=== PATIENT | male | born 1955 | race Caucasian/White ===

== ENCOUNTER 2017-07-30 11:03 | Emergency (ER) | payer MEDICAID ==
[~2017-07-30] VITALS: Ht 190.5 cm; Wt 86.0 kg
[~2017-07-30 11:03] MED LIST: PRIL20CA PO; SPIRCAP INH
[2017-07-30 11:09] VITALS: BP 156/98; PULSE 96; RESP 17; TEMP 97.7; O2SAT 96
[2017-07-30] MEDS ORDERED: NON-500T13 PO (11:30)
[2017-07-30] MEDS ORDERED: OMEP20TA PO (11:30)
[2017-07-30] MEDS ORDERED: TETANUS/DIPHTHERIA TOXOID ADULT 0.5 ML VIAL IM ONE (12:00)
[2017-07-30] MEDS ORDERED: IOHEXOL 350 MG/ML 10 ML VIAL (for RAD DIAG) IVCONTRAST ONE (12:45)
--- NOTE | 2017-07-30 13:02 | PD ---
HPI Chief Complaint: Laceration/Skin Injury Time Seen by Provider: 11:42 Travel History International Travel<30 days: No Contact w/Intl Traveler<30days: No Traveled to known affect area: No History of Present Illness HPI 62-year-old male presents emergency department for evaluation of a laceration to left upper extremity. Patient cut his left forearm with a primer boxer approximately 2 hours prior to arrival. Patient reports he applied a pressure dressing to the area which stopped the bleeding. He reports the area then began to rebleed prompting his visit to the emergency department. He denies numbness/tingling/weakness in the extremity. He has a 2 cm laceration in the proximal anterior aspect of the forearm with a large underlying hematoma and swelling. The wound is actively bleeding. Tetanus status unknown. PFSH Past Medical History Asthma: Yes Blood Disorders: No Cancer: No COPD: Yes Diminished Hearing: No Endocrine: No GERD: Yes Genitourinary: No Immune Disorder: No Musculoskeletal: No Neurologic: No Psychiatric: No Reproductive: No Respiratory: Yes Past Surgical History Appendectomy: Yes Social History Alcohol Use: Yes (8 beers per day) Tobacco Use: Yes (2PPD) Substance Use: No Allergies-Medications (Allergen,Severity, Reaction): Coded Allergies: No Known Allergies (Verified , 07/30/17) Reported Meds & Prescriptions Reported Meds & Active Scripts Active Reported Non-Aspirin Pain Relief ES (Acetaminophen) 500 Mg Tab 500 Mg PO Q4-6H PRN Omeprazole 20 Mg Tab 20 Mg PO DAILY Review of Systems Except as stated in HPI: all other systems reviewed are Neg General / Constitutional: No: Fever Eyes: No: Visual changes HENT: No: Headaches Cardiovascular: No: Chest Pain or Discomfort Respiratory: No: Shortness of Breath Gastrointestinal: No: Abdominal Pain Genitourinary: No: Dysuria Physical Exam Narrative GENERAL: Well-nourished, well-developed patient. SKIN: Focused skin assessment warm/dry. 2 cm laceration left proximal anterior forearm. The area has a large underlying hematoma with swelling. No neurovascular injury identified HEAD: Normocephalic. EYES: No scleral icterus. No injection or drainage. NECK: Supple, trachea midline. No JVD or lymphadenopathy. CARDIOVASCULAR: Regular rate and rhythm without murmurs, gallops, or rubs. RESPIRATORY: Breath sounds equal bilaterally. No accessory muscle use. GASTROINTESTINAL: Abdomen soft, non-tender, nondistended. MUSCULOSKELETAL: No cyanosis, or edema. LUE: 2 cm laceration left proximal anterior forearm. The area has a large underlying hematoma with swelling. No vascular injury identified on local inspection. 2+ brachial, radial, ulna pulse. The extremity is warm. Brisk cap refill. Patient has full range of motion and normal sensation in the hand and wrist and digits. BACK: Nontender without obvious deformity. No CVA tenderness. Data Data Last Documented VS Vital Signs Date Time Temp Pulse Resp B/P (MAP) Pulse Ox O2 Delivery O2 Flow Rate FiO2 07/30/17 11:09 97.7 96 17 156/98 (117) 96 Orders Orders Cta Up Extrem W Iv Cont W 3d (07/30/17 ) Tetanus/Diphtheria Tox Adult (Tetanus/Di (07/30/17 12:00) Iohexol 350 Inj (Omnipaque 350 Inj) (07/30/17 12:45) MDM Medical Decision Making Medical Screen Exam Complete: Yes Emergency Medical Condition: Yes Differential Diagnosis Laceration, vascular injury, hematoma, Narrative Course 62-year-old male presents emergency department for evaluation of laceration to left forearm. The wound was caused by a primer boxer. Patient is unsure of how deep the primer boxer penetrated the arm. On exam the patient has a 2 cm laceration with a large underlying hematoma and swelling. Given the location of the laceration and the amount of hematoma development underneath CTA of the extremity will be obtained to rule out vascular injury. Patient does have 2+ brachial, radial and ulnar pulse. The extremity is warm, color is homogenous, brisk cap refill. Patient refusing to wait for CTA results. He is requesting to leave to get something to eat and have a cigarette. Multiple attempts by nursing staff and myself to accommodate the patient until diagnostic studies were completed. Patient is of sound state of mind and determined he one to leave and would return later. Risks were discussed with patient. AMA: The risks of leaving against medical advice without further evaluation treatment were discussed with the patient. These risks include cardiac dysfunction, cardiac dysrhythmia, possible heart attack, possible stroke or . The patient indicated understanding of these risks and appeared to have the capacity to make this decision. Disposition: 07 AGAINST MEDICAL ADVICE Lolis Tabor Jul 30, 2017 13:02
--- NOTE | 2017-07-30 14:12 | RADRPT ---
EXAM DATE/TIME: 07/30/2017 12:31 [facility] COMPARISON: No previous studies available for comparison. INDICATIONS : Cut arm with a box feeder. mid forearm. IV CONTRAST: 96 cc Omnipaque 350 (iohexol) IV RADIATION DOSE: 6.13 CTDIvol (mGy) MEDICAL HISTORY : None SURGICAL HISTORY : None. ENCOUNTER: Initial ACUITY: 1 day PAIN SCALE: 4/10 LOCATION: Left mid forarm. TECHNIQUE: Volumetric scanning was performed using a multirow detector CT scanner. Using automated exposure cont rol and adjustment of the mA and/or kV according to patient size, radiation dose was kept as low as r easonably achievable to obtain optimal diagnostic quality images. The data was post processed with a variety of visualization algorithms including full-volume maximum intensity projection, multiplanar sliding thin-slab reformation, curved-planar reformation, and surface-rendering techniques. Using au tomated exposure control and adjustment of the mA and/or kV according to patient size, radiation dose was kept as low as reasonably achievable to obtain optimal diagnostic quality images. DICOM format image data is available electronically for review and comparison. FINDINGS: There is good visualization of the brachial artery, at the elbow. There is good visualization the ul rodrigue artery, interosseous artery and radial artery at the wrist. I don't see extravasation or pseudoaneurysm. Small hematoma is noted. Findings as been discussed with Sharona GARCIA on today's date. CONCLUSION: Negative for significant vascular injury or extravasation. Eliazar Soria MD FACR on July 30, 2017 at 14:06 Board Certified Radiologist. This report was verified electronically.
== END 2017-07-30 13:40 | disposition left against medical advice (07) ==
LOC: PHEFT 11:03
DX: S51.812A Laceration without foreign body of left forearm, initial encounter (principal); F17.200 Nicotine dependence, unspecified, uncomplicated; Z23 Encounter for immunization; Z87.09 Personal history of other diseases of the respiratory system; Z87.19 Personal history of other diseases of the digestive system; Z53.29 Procedure and treatment not carried out because of patient's decision for other reasons; W27.8XXA Contact with other nonpowered hand tool, initial encounter
CPT/HCPCS: 73206; 90471; 90714; 99285; Q9967

== ENCOUNTER 2017-07-30 14:56 | Emergency (ER) | payer MEDICAID ==
[~2017-07-30 14:56] MED LIST changes: +NON-500T13 PO; +OMEP20TA PO
[2017-07-30 14:59] VITALS: BP 142/70; PULSE 103; RESP 16; TEMP 97.8; O2SAT 95
--- NOTE | 2017-07-30 16:15 | PD ---
HPI Chief Complaint: Laceration/Skin Injury Time Seen by Provider: 16:12 Travel History International Travel<30 days: No Contact w/Intl Traveler<30days: No Traveled to known affect area: No History of Present Illness HPI 62-year-old male presents emergency department for evaluation of a laceration to left upper extremity. Patient cut his left forearm with a box nailer approximately 2 hours prior to arrival. Patient reports he applied a pressure dressing to the area which stopped the bleeding. He reports the area then began to rebleed prompting his visit to the emergency department. He denies numbness/tingling/weakness in the extremity. He has a 2 cm laceration in the proximal anterior aspect of the forearm with a large underlying hematoma and swelling. The wound is actively bleeding. Tetanus status unknown. Patient was seen earlier today around 12 PM CTA of the upper extremity was ordered to rule out a vascular injury at that time patient decided to leave AMA to get something to eat and has now returned for repair. CTA of left upper extremity reveal an aneurysm or vascular injury. PFSH Past Medical History Asthma: Yes Blood Disorders: No Cancer: No COPD: Yes Diminished Hearing: No Endocrine: No Gastrointestinal Disorders: Yes GERD: Yes Genitourinary: No Immune Disorder: No Musculoskeletal: No Neurologic: No Psychiatric: No Reproductive: No Respiratory: Yes Tetanus Vaccination: < 5 Years Influenza Vaccination: No Past Surgical History Appendectomy: Yes Other Surgery: No Social History Alcohol Use: Yes (8 beers per day) Tobacco Use: Yes (2PPD) Substance Use: No Allergies-Medications (Allergen,Severity, Reaction): Coded Allergies: No Known Allergies (Verified , 07/30/17) Reported Meds & Prescriptions Reported Meds & Active Scripts Active Reported Non-Aspirin Pain Relief ES (Acetaminophen) 500 Mg Tab 500 Mg PO Q4-6H PRN Omeprazole 20 Mg Tab 20 Mg PO DAILY Review of Systems Except as stated in HPI: all other systems reviewed are Neg Physical Exam Narrative GENERAL: Well-nourished, well-developed patient. SKIN: Focused skin assessment warm/dry. 2 cm laceration left proximal anterior forearm. The bleeding is well-controlled. No foreign body or underlying vascular injury visualized. HEAD: Normocephalic. EYES: No scleral icterus. No injection or drainage. NECK: Supple, trachea midline. No JVD or lymphadenopathy. CARDIOVASCULAR: Regular rate and rhythm without murmurs, gallops, or rubs. RESPIRATORY: Breath sounds equal bilaterally. No accessory muscle use. GASTROINTESTINAL: Abdomen soft, non-tender, nondistended. MUSCULOSKELETAL: No cyanosis, or edema. Left upper extremity 2 cm laceration left proximal anterior forearm. The bleeding is well-controlled. No foreign body or underlying vascular injury visualized. 2+ brachial, radial, ulnar pulse. Brisk cap refill. Normal sensation. Data Data Last Documented VS Vital Signs Date Time Temp Pulse Resp B/P (MAP) Pulse Ox O2 Delivery O2 Flow Rate FiO2 07/30/17 16:04 16 07/30/17 14:59 97.8 103 142/70 (94) 95 MDM Medical Decision Making Medical Screen Exam Complete: Yes Emergency Medical Condition: Yes Differential Diagnosis Laceration, rule out vascular injury Narrative Course 62-year-old male presents emergency department for evaluation of laceration to left upper extremity caused by a box nailer today. Patient was seen earlier in the emergency department around noon and at that time his physical exam revealed a to send meter laceration with a substantial hematoma developing. CTA of the upper extremity was ordered to rule out vascular injury. CTA was negative for vascular injury. The wound is not currently bleeding. It was explored and no vascular or tendon injury identified. No foreign body identified. Laceration repair performed. Patient tolerated procedure well. The extremity is neurovascularly intact. Tetanus status was updated a prior visit. Procedures Procedure Narrative LACERATION LOCATION: Left upper extremity LENGTH: 2 cm NUMBER OF STITCHES/KATINA: 4 REPAIR: The area of the laceration was prepped with Betadine and sterilely draped. The laceration was infiltrated with 1% lidocaine. The wound was copiously irrigated and explored without evidence of foreign body, tendon injury or neurovascular injury. The wound was closed using 4-0 Ethilon. This was a single layer repair. A sterile dressing was applied. The patient was advised to keep the dressing clean and dry. Patient tolerated the procedure well. Diagnosis Primary Impression: Laceration of upper extremity Qualified Codes: S41.112A - Laceration without foreign body of left upper arm , initial encounter Referrals: Primary Care Physician Additional Instructions: The sutures need to be removed in 10 days. Ice and elevate the extremity. Return to the emergency department if you have increasing pain, swelling, altered sensation or change in color of the extremity. Disposition: 01 DISCHARGE HOME Condition: Stable Leedy,Lolis N RAPID TRANSIT OPERATOR Jul 30, 2017 16:15
== END 2017-07-30 17:15 | disposition home or self-care (01) ==
LOC: PHEFT 14:56
DX: S51.812A Laceration without foreign body of left forearm, initial encounter (principal); F17.200 Nicotine dependence, unspecified, uncomplicated; Z87.09 Personal history of other diseases of the respiratory system; Z87.19 Personal history of other diseases of the digestive system; W27.8XXA Contact with other nonpowered hand tool, initial encounter
CPT/HCPCS: 12001

== ENCOUNTER 2017-08-05 11:20 | Emergency (ER) | payer MEDICAID ==
[~2017-08-05] VITALS: Ht 190.5 cm; Wt 84.8 kg
[~2017-08-05 11:20] MED LIST changes: -PRIL20CA PO; -SPIRCAP INH
[2017-08-05 11:23] VITALS: BP 145/90; PULSE 90; RESP 15; TEMP 97.6; O2SAT 93
[2017-08-05] MEDS ORDERED: BACT800T5 PO (11:44)
[2017-08-05] MEDS ORDERED: SULFAMETHOXAZOLE-TRIMETHOPRIM DS 800-160 MG TAB PO ONE (11:45)
--- NOTE | 2017-08-05 11:58 | PD ---
HPI Chief Complaint: Wound/Suture/Staple Re-Check Time Seen by Provider: 11:37 Travel History International Travel<30 days: No Contact w/Intl Traveler<30days: No Traveled to known affect area: No History of Present Illness HPI 62-year-old male that presents to the ED for evaluation of wounds to his left arm. Patient had a laceration that was repaired about 2 days ago. There was concern for arterial involvement as patient did have an area of swelling. Patient was given a CTA which was negative for this and had suturing done. Patient reports that he was told that if in 2 days he doesn't get better to come back to get rechecked. Per patient he went to his [employer] ticket checker today to get checked for skin cancers and the [employer] checker told him that the wound appears to be infected and the recommend antibiotics. He came here for reevaluation as per patient the temperature is started patient on ciprofloxacin and he is concerned that his mother had very serious reaction to it and does not want to start on that. He states that he has minimal discomfort. Per patient the swelling has not gotten worse or better. Per patient he does have some area of purulence and erythema on the wound that was not previously seen. He was not given any antibiotics. He denies any other issues. Able to move all fingers. No pain. PFSH Past Medical History Asthma: Yes Blood Disorders: No Cancer: No COPD: Yes Diminished Hearing: No Endocrine: No Gastrointestinal Disorders: Yes GERD: Yes Genitourinary: No Immune Disorder: No Musculoskeletal: No Neurologic: No Psychiatric: No Reproductive: No Respiratory: Yes Past Surgical History Appendectomy: Yes Other Surgery: No Social History Alcohol Use: Yes (8 beers per day) Tobacco Use: Yes (2PPD) Substance Use: No Allergies-Medications (Allergen,Severity, Reaction): Coded Allergies: No Known Allergies (Verified , 08/05/17) Reported Meds & Prescriptions Reported Meds & Active Scripts Active Bactrim DS (Sulfamethoxazole-Trimethoprim) 800-160 Mg Tab 1 Tab PO BID 10 Days Reported Non-Aspirin Pain Relief ES (Acetaminophen) 500 Mg Tab 500 Mg PO Q4-6H PRN Omeprazole 20 Mg Tab 20 Mg PO DAILY Review of Systems Except as stated in HPI: all other systems reviewed are Neg Physical Exam Narrative GENERAL: SKIN: Warm and dry. HEAD: Atraumatic. Normocephalic. EYES: Pupils equal and round. No scleral icterus. No injection or drainage. ENT: No nasal bleeding or discharge. Mucous membranes pink and moist. Tongue is midline. No uvula deviation. NECK: Trachea midline. No JVD. CARDIOVASCULAR: Regular rate and rhythm. No murmurs, S3, S4. RESPIRATORY: No accessory muscle use. Clear to auscultation. Breath sounds equal bilaterally. GASTROINTESTINAL: Abdomen soft, non-tender, nondistended. Hepatic and splenic margins not palpable. MUSCULOSKELETAL: Extremities without clubbing, cyanosis, or edema. No obvious deformities. Full range of motion of the upper and lower extremities bilaterally. Patient has a superficial healing laceration on the left dorsal forearm. About 2 cm. Patient has 4 sutures noted. Patient does have purulence coming from the wound. And erythema on the wound itself. Patient does have an area of swelling just proximal to the wound. This appears to be chronic likely secondary to laceration. No sign of active bleeding. No sign of abscess. NEUROLOGICAL: Awake and alert. No obvious cranial nerve deficits. Motor grossly within normal limits. Five out of 5 muscle strength in the arms and legs. Normal speech. PSYCHIATRIC: Appropriate mood and affect; insight and judgment normal. Data Data Last Documented VS Vital Signs Date Time Temp Pulse Resp B/P (MAP) Pulse Ox O2 Delivery O2 Flow Rate FiO2 08/05/17 11:23 97.6 90 15 145/90 (108) 93 Orders Orders Sulfamet-Trimeth Ds 800-160 Mg (Bactrim (08/05/17 11:45) Wound Care (08/05/17 11:44) Wound Culture And Gram Stain (08/05/17 11:44) MDM Medical Decision Making Medical Screen Exam Complete: Yes Emergency Medical Condition: Yes Medical Record Reviewed: Yes Differential Diagnosis Wound check versus infected wound versus cellulitis Narrative Course 62-year-old male that presents to the ED for evaluation of infected wound. Patient was properly examined and was found to have signs and symptoms consistent with an infected wound. Wound culture was taken. 2 of The sutures were removed by me using suture removal kit to let the wound heal by secondary intention. Patient was started on Bactrim and was given the first dose here. Wound care was done. Patient was told to follow with PCP. See ED worsening symptoms. Get the rest of the sutures removed in 14 days. Diagnosis Primary Impression: Infected wound Patient Instructions: General Instructions Additional Instructions: For the last 2 sutures removed in 10 days. Take antibiotic as prescribed. Keep area clean. He can apply Band-Aids to the area. Avoid swimming with the wound. Swelling itself should improve in at least 2 weeks to a month. It should not become more red or more purulence coming out of the wound. If this happens he needs to come back. See ED if worsening symptoms. Med/Other Pt SpecificInfo: Prescription(s) given Scripts Sulfamethoxazole-Trimethoprim (Bactrim DS) 800-160 Mg Tab 1 TAB PO BID for Infection for 10 Days, TAB 0 Refills Prov: Taj Goodman MD 08/05/17 Disposition: 01 DISCHARGE HOME Condition: Stable David Lee Aug 05, 2017 11:58
== END 2017-08-05 12:35 | disposition home or self-care (01) ==
LOC: PHEFT 11:20
DX: S51.812A Laceration without foreign body of left forearm, initial encounter (principal); T81.4XXA Infection following a procedure, initial encounter; B99.9 Unspecified infectious disease; B95.61 Methicillin susceptible Staphylococcus aureus infection as the cause of diseases classified elsewhere; X58.XXXA Exposure to other specified factors, initial encounter
CPT/HCPCS: 86403; 87070; 87077; 87186; 99283

== ENCOUNTER 2017-08-09 07:23 | Emergency (ER) | payer MEDICAID ==
[~2017-08-09] VITALS: Ht 190.5 cm; Wt 87.0 kg
[~2017-08-09 07:23] MED LIST changes: +BACT800T5 PO
[2017-08-09 07:29] VITALS: BP 171/91; PULSE 78; RESP 18; TEMP 97.8; O2SAT 94
[2017-08-09] MEDS ORDERED: RESP: LIDOCAINE HCL 4% PF 5 ML NEB NEB ONE (11:00)
[2017-08-09] MEDS ORDERED: RESP: ALBUTEROL 2.5 MG/IPRATROPIUM 0.5 MG NEB (SCH) NEB ONE (11:00)
[2017-08-09] MEDS ORDERED: predniSONE 50 MG TAB PO ONE (11:00)
--- NOTE | 2017-08-09 11:00 | PD ---
HPI Chief Complaint: Fall Time Seen by Provider: 10:48 Travel History International Travel<30 days: No Contact w/Intl Traveler<30days: No Traveled to known affect area: No History of Present Illness HPI The patient is a 62-year-old male who presents to the emergency department for left posterior rib pain after falling 2 days ago. The patient complains of pain located over the left posterior and lateral rib cage after falling 2 days ago, pain is sharp, worse with coughing and movement, slightly alleviated at rest. The patient does note a productive cough producing white sputum, smokes on a regular basis, and thinks he may have underlying COPD. The patient denies any loss of consciousness, head injury, or neck injury during the fall. The pain is worse with movement and alleviated at rest. He does complain of mild nausea, is unsure if it is secondary to taking Bactrim twice a day for a skin infection. He denies any vomiting or diarrhea. PFSH Past Medical History Asthma: Yes Blood Disorders: No Cancer: No COPD: Yes Diminished Hearing: No Endocrine: No Gastrointestinal Disorders: Yes GERD: Yes Genitourinary: No Immune Disorder: No Musculoskeletal: No Neurologic: No Psychiatric: No Reproductive: No Respiratory: Yes Past Surgical History Appendectomy: Yes Other Surgery: No Social History Alcohol Use: Yes (8 beers per day) Tobacco Use: Yes (2PPD) Substance Use: No Allergies-Medications (Allergen,Severity, Reaction): Coded Allergies: No Known Allergies (Verified , 08/09/17) Reported Meds & Prescriptions Reported Meds & Active Scripts Active Bactrim DS (Sulfamethoxazole-Trimethoprim) 800-160 Mg Tab 1 Tab PO BID 10 Days Reported Non-Aspirin Pain Relief ES (Acetaminophen) 500 Mg Tab 500 Mg PO Q4-6H PRN Omeprazole 20 Mg Tab 20 Mg PO DAILY Review of Systems Except as stated in HPI: all other systems reviewed are Neg General / Constitutional: No: Fever Cardiovascular: Positive: Chest Pain or Discomfort (posterior left chest wall pain) Respiratory: Positive: Cough, Shortness of Breath, Pleuritic Pain Gastrointestinal: Positive: Nausea, Loss of Appetite, No: Vomiting, Abdominal Pain Musculoskeletal: No: Edema Physical Exam Narrative GENERAL: Awake, alert, pleasant [id number] male who appears his stated age and is in no acute respiratory distress. SKIN: Focused skin assessment warm/dry. Tanned complexion. HEAD: Atraumatic. Normocephalic. EYES: Pupils equal and round. No scleral icterus. No injection or drainage. ENT: No nasal bleeding or discharge. Mucous membranes pink and moist. NECK: Trachea midline. No JVD. CARDIOVASCULAR: Regular rate and rhythm. No murmur appreciated. RESPIRATORY: No accessory muscle use. A few coarse breath sounds with prolonged expiratory phase and wheezes. GASTROINTESTINAL: Abdomen soft, non-tender, nondistended. No rebound tenderness. Back: Mild tenderness of the mid to lateral left thoracic cage, no crepitus or obvious deformity noted. MUSCULOSKELETAL: No obvious deformities. No clubbing. No cyanosis. No edema. NEUROLOGICAL: Awake and alert. No obvious cranial nerve deficits. Motor grossly within normal limits. Normal speech. Ambulates without difficulty. PSYCHIATRIC: Appropriate mood and affect; insight and judgment normal. Data Data Last Documented VS Vital Signs Date Time Temp Pulse Resp B/P (MAP) Pulse Ox O2 Delivery O2 Flow Rate FiO2 08/09/17 07:29 97.8 78 18 171/91 (117) 94 Room Air Orders Orders Chest, Single Ap (08/09/17 ) Albuterol-Ipratropium Neb (Duoneb Neb) (08/09/17 11:00) Lidocaine Pf 4% Neb (Lidocaine Pf 4% Neb (08/09/17 11:00) Prednisone (Deltasone) (08/09/17 11:00) MDM Medical Decision Making Medical Screen Exam Complete: Yes Emergency Medical Condition: Yes Medical Record Reviewed: Yes Interpretation(s) Chest x-ray reveals acute fractures involving the posterior aspect of the left seventh, eighth, ninth, 10th, and 11th ribs. No acute cardiopulmonary disease. Differential Diagnosis differential diagnosis includes fracture, pulmonary contusion, hemothorax, pneumothorax, bronchitis, pneumonia, rib contusion. Narrative Course X-ray of the chest was obtained. The patient was administered prednisone 50 mg orally and duo neb 1 with respiratory lidocaine. Chest x-ray reveals acute fractures involving the posterior aspect the left seventh, eighth, ninth, 10th, and 11th ribs. No acute cardiopulmonary disease. The patient fell 2 days ago, no evidence of pneumothorax. He has no abdominal pain on exam, I doubt splenic injury and there is no evidence of pneumothorax/hemothorax on exam. The patient will be placed on prednisone, Lortab, albuterol inhaler, and incentive spirometry. The patient is already on Bactrim. He is advised to follow-up with his primary physician and return if symptoms worsen or progress. The patient did fall approximately 48 hours ago, do not believe the patient needs a stat CT of the thorax/abdomen and pelvis or admission for reevaluation in 12 hours as he fell 48 hours ago. He is advised to stop smoking. Diagnosis Primary Impression: Multiple rib fractures involving four or more ribs Patient Instructions: General Instructions Additional Instructions: Medications as directed. Follow-up with your primary physician. Stop smoking. Incentive spirometry. Continue Bactrim as previously directed. Return if symptoms worsen or progress. Med/Other Pt SpecificInfo: Prescription(s) given Scripts Albuterol 18 GM Inh (Ventolin Hfa 18 GM Inh) 90 Mcg/Act Aer 2 PUFF INH Q4H Y for SHORTNESS OF BREATH, #1 INHALER 0 Refills Prov: Bobby Galarza MD 08/09/17 Hydrocodone-Acetaminophen ([place]) 10-325 Mg Tab 1 TAB PO Q6H Y for PAIN, #20 TAB 0 Refills Prov: Bobby Galarza MD 08/09/17 Prednisone (Deltasone) 20 Mg Tab 40 MG PO DAILY for 4 Days, TAB 0 Refills Prov: Bobby Galarza MD 08/09/17 Disposition: 01 DISCHARGE HOME Condition: Stable Bobby Galarza MD Aug 09, 2017 11:00
--- NOTE | 2017-08-09 12:09 | RADRPT ---
EXAM DATE/TIME: 08/09/2017 11:34 [facility] COMPARISON: No previous studies available for comparison. INDICATIONS : Fall, left posterior rib pain, cough, short of breath. MEDICAL HISTORY : Asthma SURGICAL HISTORY : None. ENCOUNTER: Initial ACUITY: 2 days PAIN SCORE: 7/10 LOCATION: Left posterior ribs FINDINGS: A single view of the chest demonstrates the lungs to be symmetrically aerated without evidence of mas s, infiltrate or effusion. The cardiomediastinal contours are unremarkable. There is evidence of acu te fractures involving the posterior aspect of the left seventh, eighth, ninth, 10th and 11th ribs. CONCLUSION: 1. Acute fractures involving the posterior aspect of the left seventh, eighth, ninth, 10th and 11th r ibs. 2. No acute cardiopulmonary disease. Santi Babb MD on August 09, 2017 at 12:06 Board Certified Radiologist. This report was verified electronically.
[2017-08-09] MEDS ORDERED: PRED-503 PO (12:19)
[2017-08-09] MEDS ORDERED: HYDR-3366 PO ×2 (12:19→12:23)
[2017-08-09] MEDS ORDERED: VENTAER INH ×2 (12:19→12:23)
== END 2017-08-09 12:39 | disposition home or self-care (01) ==
LOC: PHED 07:23 → PHEFT 12:39
DX: S22.49XA Multiple fractures of ribs, unspecified side, initial encounter for closed fracture (principal); W19.XXXA Unspecified fall, initial encounter; J44.9 Chronic obstructive pulmonary disease, unspecified
CPT/HCPCS: 71010; 94150; 94664; 99284; J7512

== ENCOUNTER 2017-08-15 06:13 | Emergency (ER) | payer MEDICAID ==
[~2017-08-15] VITALS: Ht 190.5 cm; Wt 84.7 kg
[~2017-08-15 06:13] MED LIST changes: +HYDR-3366 PO; +PRED-503 PO; +VENTAER INH
[2017-08-15 06:17] VITALS: BP 142/78; PULSE 76; RESP 16; TEMP 97.4; O2SAT 97
[2017-08-15] MEDS ORDERED: BACT800T5 PO (06:54)
[2017-08-15] MEDS ORDERED: IBUP800T23 PO (06:54)
--- NOTE | 2017-08-15 06:55 | PD ---
HPI Chief Complaint: Wound/Suture/Staple Re-Check Time Seen by Provider: 06:35 Travel History International Travel<30 days: No Contact w/Intl Traveler<30days: No Traveled to known affect area: No History of Present Illness HPI The patient is a 62-year-old male that came in to the emergency department on the second of this month for a left forearm laceration. He was sutured. He states there was a bump at that time on his forearm. He came in on the of this month and had several stitches removed. Apparently, his wound was infected at that time and he was put on Septra DS. He ran out of the Septra DS. He comes in again to having sutures removed. There is no drainage from the wound but there is a hard bump on his left forearm. PFSH Past Medical History Asthma: Yes Blood Disorders: No Cancer: No COPD: Yes Diminished Hearing: No Endocrine: No Gastrointestinal Disorders: Yes GERD: Yes Genitourinary: No Immune Disorder: No Implanted Vascular Access Dvce: No Musculoskeletal: No Neurologic: No Psychiatric: No Reproductive: No Respiratory: Yes Tetanus Vaccination: < 5 Years Influenza Vaccination: No Past Surgical History Appendectomy: Yes Other Surgery: No Social History Alcohol Use: Yes (8 beers per day) Tobacco Use: Yes (2PPD) Substance Use: No Allergies-Medications (Allergen,Severity, Reaction): Coded Allergies: No Known Allergies (Verified , 08/15/17) Reported Meds & Prescriptions Reported Meds & Active Scripts Active Ventolin Hfa 18 GM Inh (Albuterol Sulfate) 90 Mcg/Act Aer 2 Puff INH Q4H PRN [place] (Hydrocodone-Acetaminophen) 10-325 Mg Tab 1 Tab PO Q6H PRN Bactrim DS (Sulfamethoxazole-Trimethoprim) 800-160 Mg Tab 1 Tab PO BID 10 Days Reported Non-Aspirin Pain Relief ES (Acetaminophen) 500 Mg Tab 500 Mg PO Q4-6H PRN Omeprazole 20 Mg Tab 20 Mg PO DAILY Review of Systems Except as stated in HPI: all other systems reviewed are Neg Physical Exam Narrative GENERAL: Well-nourished, well-developed patient in minimal apparent distress with his left forearm discomfort. He smells strongly of beer but does not appear clinically intoxicated. His vital signs show temperature 97.4 and blood pressure 142/78 but are otherwise normal. SKIN: Focused skin assessment warm/dry. There is a 1.5 x 1 cm hard and nontender bump on the volar left forearm. This may be scarring or hematoma that filled with fibrous material. It is too hard and nontender to be an abscess. This does not appear to be a keloid. There is minimal redness around the tissues and the sutures will be removed. No drainage is present from the tissues. The scar tissue does not appear to be attached to a tendon, it appears to be superficial, just below the skin. HEAD: Normocephalic. EYES: No scleral icterus. No injection or drainage. NECK: Supple, trachea midline. No JVD or lymphadenopathy. CARDIOVASCULAR: Regular rate and rhythm without murmurs, gallops, or rubs. RESPIRATORY: Breath sounds equal bilaterally. No accessory muscle use. GASTROINTESTINAL: Abdomen soft, non-tender, nondistended. MUSCULOSKELETAL: No cyanosis, or edema. BACK: Nontender without obvious deformity. No CVA tenderness. Data Data Last Documented VS Vital Signs Date Time Temp Pulse Resp B/P (MAP) Pulse Ox O2 Delivery O2 Flow Rate FiO2 08/15/17 06:17 97.4 76 16 142/78 (99) 97 MDM Medical Decision Making Medical Screen Exam Complete: Yes Emergency Medical Condition: Yes Medical Record Reviewed: Yes Differential Diagnosis Scar tissue forearm, hematoma with fibrous material, keloid, abscess, healing laceration, alcohol intoxication Narrative Course The laceration appears to be healing with minimal infection. The sutures will be removed. The lump may be simply fibrinous material that is left in the hematoma. Plan: The patient be given a refill on the Septra and is given Motrin 800 mg to take 3 times daily. He should follow-up with a primary care physician. Diagnosis Primary Impression: Infected wound Med/Other Pt SpecificInfo: Prescription(s) given Scripts Ibuprofen (Ibuprofen) 800 Mg Tab 800 MG PO TID, #31 TAB 0 Refills Prov: Lowell Miner MD 08/15/17 Sulfamethoxazole-Trimethoprim (Bactrim DS) 800-160 Mg Tab 1 TAB PO BID for Infection, #20 TAB 0 Refills Prov: Lowell Miner MD 08/15/17 Lowell Miner MD Aug 15, 2017 06:55
[2017-08-15] MEDS ORDERED: IBUPROFEN 800 MG TAB PO ONE (07:00)
[2017-08-15] MEDS ORDERED: SULFAMETHOXAZOLE-TRIMETHOPRIM DS 800-160 MG TAB PO ONE (07:00)
== END 2017-08-15 07:09 | disposition home or self-care (01) ==
LOC: PHED 06:13
DX: Z48.02 Encounter for removal of sutures (principal); S51.812A Laceration without foreign body of left forearm, initial encounter; L08.9 Local infection of the skin and subcutaneous tissue, unspecified; X58.XXXA Exposure to other specified factors, initial encounter; J44.9 Chronic obstructive pulmonary disease, unspecified; K21.9 Gastro-esophageal reflux disease without esophagitis; F17.210 Nicotine dependence, cigarettes, uncomplicated
CPT/HCPCS: 99283